=== PATIENT | female | born 1965 | race Caucasian/White ===

== ENCOUNTER 2020-04-25 12:40 | Day surgery (SDC) | payer MEDICAID ==
[2020-04-20 16:51] LABS: COVID AG,FIA SOURCE NASOPHARYNGEAL
[~2020-04-25] VITALS: Ht 160 cm; Wt 80.0 kg
[~2020-04-25 12:40] MED LIST: SODIUM CHLORIDE 0.9% 1,000 ML IV ONE; SODIUM CHLORIDE 0.9% 1,000 ML ONE
[2020-04-25] MEDS ORDERED: PROPOFOL 1% 20 ML VIAL IVP ONE (12:41)
[2020-04-25] MEDS ORDERED: LIDOCAINE/PF 2% 5 ML VIAL IM ONE (12:41)
[2020-04-25 13:32] LABS: GLUCOMETER DEV NAME(LOC) SDS.; GLUCOSE,POINT OF CARE 81 MG/DL (70-110)
== END 2020-04-25 15:25 | disposition home or self-care (01) ==
LOC: SURGERY 12:40
PROVIDERS: ATTEND Internal Medicine Gastroenterology
DX: K62.5 Hemorrhage of anus and rectum (principal); R10.9 Unspecified abdominal pain; K57.30 Diverticulosis of large intestine without perforation or abscess without bleeding; K64.8 Other hemorrhoids; E78.5 Hyperlipidemia, unspecified; Z79.899 Other long term (current) drug therapy; Z20.828 Contact with and (suspected) exposure to other viral communicable diseases
CPT/HCPCS: 45378; 82962; 87426; C9803; J2704; J3490; J7030

== ENCOUNTER → 2022-04-07 | Outpatient (CLI) | payer OTHER ==
[2022-04-10 03:06] LABS: RUBEOLA (MEASLES) IGG 63.5 AU/mL (Immune >16.4)
[2022-04-10 05:07] LABS: RUBELLA AB IGG-REFLAB <0.90 index (Immune >0.99)
== END | disposition home or self-care (01) ==
LOC: LABMN 08:04
PROVIDERS: ATTEND Internal Medicine
DX: Z02.1 Encounter for pre-employment examination (principal)
CPT/HCPCS: 86706; 86735; 86762; 86765; 86787